=== PATIENT | male | born 1965 ===

== ENCOUNTER 2022-12-06 05:30 | Day surgery (SDC) | payer OTHER | END 2022-12-06 09:55 | disposition home or self-care (01) | LOC: CIR.AMB 05:30 → ADM 09:15 → CIR.AMB 09:55 | PROVIDERS: ATTEND Surgery | DX: D17.0 Benign lipomatous neoplasm of skin and subcutaneous tissue of head, face and neck (principal); R22.1 Localized swelling, mass and lump, neck; Z20.822 Contact with and (suspected) exposure to COVID-19 ==